=== PATIENT | male | born 1970 | race Caucasian/White ===

== ENCOUNTER 2017-04-15 22:34 | Emergency (ER) | payer SELFPAY ==
[~2017-04-15] VITALS: Ht 170.2 cm; Wt 79.4 kg
[~2017-04-15 22:34] MED LIST: CLINDAMYCIN HC300 MG PO; COLACE100 MG PO; FLO4 PO; LAC PO; NOR10T PO
[2017-04-16 00:56] VITALS: BP 125/86
== END 2017-04-16 01:11 | disposition home or self-care (01) ==
LOC: ED 22:34
DX: H72.92 Unspecified perforation of tympanic membrane, left ear (principal); Z87.442 Personal history of urinary calculi

== ENCOUNTER 2018-08-28 14:18 | Emergency (ER) | payer SELFPAY ==
[~2018-08-28] VITALS: Ht 170.2 cm; Wt 78.9 kg
[2018-08-28 14:23] VITALS: Ht 170.2 cm; Wt 78.9 kg
[2018-08-28 18:12] VITALS: BP 152/78
== END 2018-08-28 17:50 | disposition home or self-care (01) ==
LOC: ED 14:18
DX: S61.412A Laceration without foreign body of left hand, initial encounter (principal); S61.452A Open bite of left hand, initial encounter; J44.9 Chronic obstructive pulmonary disease, unspecified; Z87.442 Personal history of urinary calculi; W54.0XXA Bitten by dog, initial encounter; Y93.89 Activity, other specified; Y92.89 Other specified places as the place of occurrence of the external cause; Y99.8 Other external cause status
CPT/HCPCS: J2270; J2543; Q0162

== ENCOUNTER 2018-08-30 20:06 | Emergency (ER) | payer SELFPAY ==
[~2018-08-30] VITALS: Ht 170.2 cm; Wt 81.6 kg
[2018-08-30 20:17] VITALS: Ht 170.2 cm; Wt 81.6 kg
[2018-08-30 22:25] VITALS: BP 142/74
== END 2018-08-30 22:25 | disposition home or self-care (01) ==
LOC: ED 20:06
DX: S61.452D Open bite of left hand, subsequent encounter (principal); J44.9 Chronic obstructive pulmonary disease, unspecified; Z87.442 Personal history of urinary calculi; W54.0XXD Bitten by dog, subsequent encounter
CPT/HCPCS: J2543

== ENCOUNTER 2018-09-01 17:06 | Inpatient (IN) | payer MEDICAID ==
[~2018-09-01] VITALS: Ht 170.2 cm; Wt 81.6 kg
[2018-09-01 17:37] VITALS: Ht 170.2 cm; Wt 81.6 kg
[2018-09-01 20:29] LABS: CALCIUM 8.8 mg/dL (8.5-10.1); CHLORIDE SERUM 103 mmol/L (98-107); CREATININE SERUM 1.1 mg/dL (0.7-1.3); GFR1 > 60 mL/min; GLUCOSE SERUM 94 mg/dL (74-106); POTASSIUM SERUM 3.9 mmol/L (3.5-5.1); SODIUM SERUM 138 mmol/L (136-145)
[2018-09-01 20:33] LABS: ALBUMIN 3.1 g/dL (3.4-5.0); ALKALINE PHOSPHATASE 88 U/L (46-116); ALT/SGPT 18 U/L (16-63); AST/SGOT 22 U/L (15-37); BASOPHIL % 0.6 % (0-2); BILIRUBIN TOTAL 0.29 mg/dL (0.20-1.00); PLATELET COUNT 344 x10^3mcL (130-400); RED CELL DISTRIBUTION WIDTH 14.4 % (11.5-14.5); TOTAL PROTEIN, SERUM 7.4 g/dL (6.4-8.2)
[2018-09-01] MEDS ORDERED: NORCO 10-325 T1 EACH PO (21:10)
[2018-09-01] MEDS ORDERED: IBUPROFEN400 MG (21:11)
[2018-09-01] MEDS ORDERED: AMO125L8 (21:11)
[2018-09-02 01:29] LABS: CHOLESTEROL/HDL RATIO 2.6; MAGNESIUM 2.1 mg/dL (1.8-2.4)
[2018-09-02 01:40] VITALS: BP 134/95
[2018-09-02 05:48] VITALS: BP 125/80
[2018-09-02 06:44] LABS: BASOPHIL % 0.8 % (0-2); PLATELET COUNT 297 x10^3mcL (130-400); RED CELL DISTRIBUTION WIDTH 14.2 % (11.5-14.5)
[2018-09-02 07:09] LABS: CALCIUM 7.9 mg/dL (8.5-10.1); CARBON DIOXIDE 25.7 mmol/L (21-32); CHLORIDE SERUM 108 mmol/L (98-107); CREATININE SERUM 0.9 mg/dL (0.7-1.3); GFR1 > 60 mL/min; GLUCOSE SERUM 96 mg/dL (74-106); MAGNESIUM 1.9 mg/dL (1.8-2.4); PHOSPHOROUS 2.1 mg/dL (2.5-4.9); POTASSIUM SERUM 3.9 mmol/L (3.5-5.1); SODIUM SERUM 142 mmol/L (136-145)
[2018-09-02 08:21] LABS: UA SPECIFIC GRAVITY 1.015 (1.005-1.035); microscopic required? YES; urine erythrocyte 3+ (NEGATIVE)
[2018-09-02 08:50] VITALS: BP 119/75
[2018-09-02 13:39] VITALS: BP 140/88
[2018-09-02 18:01] VITALS: BP 123/76
[2018-09-02 21:45] VITALS: BP 136/91
[2018-09-03 06:00] VITALS: BP 136/92
[2018-09-03 07:10] LABS: BASOPHIL % 0.4 % (0-2); PLATELET COUNT 323 x10^3mcL (130-400); RED CELL DISTRIBUTION WIDTH 14.1 % (11.5-14.5)
[2018-09-03 07:20] LABS: CALCIUM 8.7 mg/dL (8.5-10.1); CARBON DIOXIDE 20.8 mmol/L (21-32); CHLORIDE SERUM 104 mmol/L (98-107); CREATININE SERUM 0.8 mg/dL (0.7-1.3); GFR1 > 60 mL/min; GLUCOSE SERUM 87 mg/dL (74-106); MAGNESIUM 2.2 mg/dL (1.8-2.4); PHOSPHOROUS 2.8 mg/dL (2.5-4.9); POTASSIUM SERUM 4.7 mmol/L (3.5-5.1); SODIUM SERUM 135 mmol/L (136-145)
[2018-09-03 09:36] VITALS: BP 131/85
[2018-09-03 17:04] VITALS: BP 113/76
[2018-09-03 20:47] VITALS: BP 139/85
[2018-09-04 06:13] VITALS: BP 135/74
[2018-09-04 06:34] LABS: CALCIUM 8.4 mg/dL (8.5-10.1); CARBON DIOXIDE 25.9 mmol/L (21-32); CHLORIDE SERUM 104 mmol/L (98-107); CREATININE SERUM 1.1 mg/dL (0.7-1.3); GFR1 > 60 mL/min; GLUCOSE SERUM 94 mg/dL (74-106); POTASSIUM SERUM 3.9 mmol/L (3.5-5.1); SODIUM SERUM 137 mmol/L (136-145)
[2018-09-04 07:14] LABS: BASOPHIL % 0.4 % (0-2); PLATELET COUNT 330 x10^3mcL (130-400); RED CELL DISTRIBUTION WIDTH 13.9 % (11.5-14.5)
[2018-09-04 09:23] VITALS: BP 134/78
[2018-09-04] MEDS ORDERED: DOXYCYCLINE HY100 M2 PO ×2 (12:20→12:32)
[2018-09-04] MEDS ORDERED: NORCO1 TA1 PO (12:22)
[2018-09-04 13:27] VITALS: BP 134/78
== END 2018-09-04 14:10 | disposition home or self-care (01) | DRG 383 ==
LOC: ED 17:06 → MU 09-02 00:09
PROVIDERS: General Practice; Specialist
DX: L03.114 Cellulitis of left upper limb (principal); N17.0 Acute kidney failure with tubular necrosis; E44.1 Mild protein-calorie malnutrition; E87.1 Hypo-osmolality and hyponatremia; R73.03 Prediabetes; E83.39 Other disorders of phosphorus metabolism; Z87.442 Personal history of urinary calculi; Z68.28 Body mass index [BMI] 28.0-28.9, adult; Z87.11 Personal history of peptic ulcer disease; F17.210 Nicotine dependence, cigarettes, uncomplicated
CPT/HCPCS: J0295; J0696; J3370; J7030; J7050

== ENCOUNTER 2018-09-05 10:01 | Inpatient (IN) | payer MEDICAID ==
[~2018-09-05] VITALS: Ht 170.2 cm; Wt 79.5 kg
[~2018-09-05 10:01] MED LIST changes: +AMO125L8; +DOXYCYCLINE HY100 M2 PO; +IBUPROFEN400 MG; +NORCO 10-325 T1 EACH PO; +NORCO1 TA1 PO
[2018-09-05 10:08] VITALS: Ht 170.2 cm; Wt 79.5 kg
[2018-09-05 11:27] LABS: PLATELET COUNT 355 x10^3mcL (130-400)
[2018-09-05 11:43] LABS: ALKALINE PHOSPHATASE 84 U/L (46-116); ALT/SGPT 19 U/L (16-63); AST/SGOT 20 U/L (15-37); BILIRUBIN TOTAL 0.4 mg/dL (0.20-1.00); CALCIUM 8.7 mg/dL (8.5-10.1); CARBON DIOXIDE 28.2 mmol/L (21-32); CHLORIDE SERUM 102 mmol/L (98-107); CREATININE SERUM 1.1 mg/dL (0.7-1.3); GFR1 > 60 mL/min; GLUCOSE SERUM 109 mg/dL (74-106); LIPASE 100 IU/L (73-393); POTASSIUM SERUM 4.3 mmol/L (3.5-5.1); SODIUM SERUM 138 mmol/L (136-145); TOTAL PROTEIN, SERUM 7.5 g/dL (6.4-8.2)
[2018-09-05 11:47] LABS: ALBUMIN 2.9 g/dL (3.4-5.0)
[2018-09-05 12:13] LABS: BAND NEUTROPHIL 8 % (0-10); BASOPHIL 0 % (0-2)
[2018-09-05 12:14] LABS: MONOCYTE 4 % (0-7); SEGMENTED NEUTROPHILS 80 % (37-75); burr cell (echinocyte) 1+; rbc morphology (normal/abnorm) ABNORMAL (NORMAL)
[2018-09-05 13:02] LABS: UA SPECIFIC GRAVITY 1.025 (1.005-1.035); microscopic required? YES; urine erythrocyte 3+ (NEGATIVE)
[2018-09-05 13:09] LABS: AMPHETAMINE QUAL UR POSITIVE (See below)
[2018-09-05 16:12] LABS: CHOLESTEROL/HDL RATIO 3.5; MAGNESIUM 1.9 mg/dL (1.8-2.4)
[2018-09-05 16:19] LABS: FREE T4 0.81 ng/dL (0.76-1.46); FREE THYROXINE INDEX 2.2 ug/dL (1.4-4.5); T4(THYROXINE) 6.7 ug/dL (4.7-13.3)
[2018-09-05 16:36] VITALS: BP 131/88
[2018-09-05 17:49] LABS: T3 TOTAL 0.78 ng/mL
[2018-09-05 20:00] VITALS: BP 129/82
[2018-09-06 05:57] VITALS: BP 116/69
[2018-09-06 06:20] LABS: BASOPHIL % 0.2 % (0-2); PLATELET COUNT 315 x10^3mcL (130-400)
[2018-09-06 06:37] LABS: CALCIUM 7.7 mg/dL (8.5-10.1); CARBON DIOXIDE 23.7 mmol/L (21-32); CHLORIDE SERUM 106 mmol/L (98-107); CREATININE SERUM 1.1 mg/dL (0.7-1.3); GFR1 > 60 mL/min; GLUCOSE SERUM 91 mg/dL (74-106); MAGNESIUM 1.6 mg/dL (1.8-2.4); PHOSPHOROUS 2.6 mg/dL (2.5-4.9); POTASSIUM SERUM 3.8 mmol/L (3.5-5.1); SODIUM SERUM 139 mmol/L (136-145)
[2018-09-06 09:45] VITALS: BP 137/73
[2018-09-06 11:11] VITALS: BP 118/84
[2018-09-06 17:28] VITALS: BP 120/77
[2018-09-06 19:50] VITALS: BP 133/82
[2018-09-07 05:43] VITALS: BP 111/70
[2018-09-07 07:40] LABS: BASOPHIL % 0.2 % (0-2); PLATELET COUNT 312 x10^3mcL (130-400); RED CELL DISTRIBUTION WIDTH 14.2 % (11.5-14.5)
[2018-09-07 07:48] LABS: CALCIUM 7.9 mg/dL (8.5-10.1); CARBON DIOXIDE 25.8 mmol/L (21-32); CHLORIDE SERUM 106 mmol/L (98-107); GFR1 > 60 mL/min; GLUCOSE SERUM 102 mg/dL (74-106); MAGNESIUM 1.9 mg/dL (1.8-2.4); PHOSPHOROUS 2.6 mg/dL (2.5-4.9); POTASSIUM SERUM 3.9 mmol/L (3.5-5.1); SODIUM SERUM 137 mmol/L (136-145)
[2018-09-07] MEDS ORDERED: PROTONIX40 MG PO (09:57)
[2018-09-07] MEDS ORDERED: LEVAQUIN500 M1 PO (09:58)
[2018-09-07] MEDS ORDERED: FLA500 PO (09:58)
[2018-09-07] MEDS ORDERED: IBU600 M2 PO (10:01)
[2018-09-07 10:20] VITALS: BP 146/92
[2018-09-07 12:26] VITALS: BP 111/70
== END 2018-09-07 13:22 | disposition home or self-care (01) | DRG 241 ==
LOC: ED 10:01 → MU 14:53
PROVIDERS: Emergency Medicine; General Practice; Internal Medicine Gastroenterology
PROC: 0DB98ZX Excision of Duodenum, Via Natural or Artificial Opening Endoscopic, Diagnostic (ICD-10-PCS; principal; 2018-09-06 10:00)
PROC: 0DB78ZX Excision of Stomach, Pylorus, Via Natural or Artificial Opening Endoscopic, Diagnostic (ICD-10-PCS; 2018-09-06 10:00)
DX: K25.9 Gastric ulcer, unspecified as acute or chronic, without hemorrhage or perforation (principal); N17.0 Acute kidney failure with tubular necrosis; E44.0 Moderate protein-calorie malnutrition; E72.20 Disorder of urea cycle metabolism, unspecified; K29.80 Duodenitis without bleeding; E86.0 Dehydration; F15.10 Other stimulant abuse, uncomplicated; J44.9 Chronic obstructive pulmonary disease, unspecified; N20.0 Calculus of kidney; R31.9 Hematuria, unspecified; Z87.442 Personal history of urinary calculi; Z68.27 Body mass index [BMI] 27.0-27.9, adult; Z87.891 Personal history of nicotine dependence; S61.452D Open bite of left hand, subsequent encounter; W54.0XXD Bitten by dog, subsequent encounter
CPT/HCPCS: 43235; 82962; 83880; 84439; C9113; G0480; J0295; J1200; J1610; J1885; J1956; J2250; J2310; J2405; J3010; J3490; J7030; Q0092

== ENCOUNTER 2019-05-18 09:38 | Inpatient (IN) | payer SELFPAY ==
[~2019-05-18] VITALS: Ht 170.2 cm; Wt 81.2 kg
[~2019-05-18 09:38] MED LIST changes: +FLA500 PO; +IBU600 M2 PO; +LEVAQUIN500 M1 PO; +PROTONIX40 MG PO
--- NOTE | 2019-05-18 09:49 | NUR ---
EKG IN PROCESS
--- NOTE | 2019-05-18 10:09 | NUR ---
PT C/O CHEST TIGHTNESS RADIATING TO LEFT SHOULDER WITH SOB AND LEFT SHOULDER NUMBNESS SINCE THURSDAY AM, PT ALSO C/O GENERAL BODY ACHES SINCE THURSDAY AM. PT DENIES ANY COUGH AND/OR HX ANXIETY. PT STS +DIZZY WITH -LOC. PT DENIES ANY EPISODES OF N/V. PT DENIES ANY RECENT TRAUMA AND/OR INJURY, PT AAOX4, RESPS E/U, LUNGS CTA, SKIN PINK DRY AND WARM, NO S/S RESP DISTRESS NOTED AT THIS TIME , PT SPEAKING FULL CLEAR SENTENCES, IN NAD AT THIS TIME, PT GOWNED AND PLACED ON FULL CM , SINUS TACHYCARDIA, AWAITING MSE
--- NOTE | 2019-05-18 10:10 | NUR ---
PT ALSO C/O DIARRHEA X2 DAYS
[2019-05-18 10:55] LABS: CALCIUM 9.1 mg/dL (8.5-10.1); CARBON DIOXIDE 23.6 mmol/L (21-32); CREATININE SERUM 1.5 mg/dL (0.7-1.3); POTASSIUM SERUM 4.3 mmol/L (3.5-5.1)
[2019-05-18 11:00] LABS: BILIRUBIN TOTAL 0.6 mg/dL (0.20-1.00)
[2019-05-18 11:02] LABS: ALBUMIN 3.3 g/dL (3.4-5.0); BASOPHIL % 0.3 % (0-2); PLATELET COUNT 260 x10^3mcL (130-400); TOTAL PROTEIN, SERUM 8.3 g/dL (6.4-8.2)
--- NOTE | 2019-05-18 11:16 | NUR ---
PT TAKEN TO CT VIA [facility]
[2019-05-18 11:22] LABS: RED CELL DISTRIBUTION WIDTH 14.9 % (11.5-14.5)
--- NOTE | 2019-05-18 11:29 | NUR ---
PT BACK FROM CT IN STABLE CONDITION
--- NOTE | 2019-05-18 11:53 | NUR ---
PT ASLEEP BUT AROUSABLE IN POSITION OF COMFORT, RESPS E/U, LIGHTS DIMMED PER PT REQUEST AND COMFORT, CALL LIGHT WITHIN REACH, WILL CONTINUE TO MONITOR
[2019-05-18 12:35] LABS: microscopic required? YES; urine erythrocyte 2+ (NEGATIVE)
--- NOTE | 2019-05-18 12:59 | NUR ---
PT IN POSITION OF COMFORT, PT DENIES NEED FOR PAIN MEDICATION AT THIS TIME, RESPS E/U, VSS, CALL LIGHT WITHIN REACH, WILL CONTINUE TO MONITOR
--- NOTE | 2019-05-18 13:55 | NUR ---
PT REQUESTING ICE CHIPS, PER MD AQUINO OKAY TO GIVE PT ICE CHIPS, ICE CHIPS PROVIDED
--- NOTE | 2019-05-18 14:59 | NUR ---
PT RESTING IN POSITION OF COMFORT, RESPS E/U, VSS
--- NOTE | 2019-05-18 15:30 | NUR ---
REPORT GIVEN TO MYAH BOWMAN, TELE
[2019-05-18 15:47] LABS: T3 TOTAL 0.73 ng/mL
[2019-05-18 15:59] LABS: FREE T4 0.83 ng/dL (0.76-1.46); FREE THYROXINE INDEX 1.7 ug/dL (1.4-4.5); T4(THYROXINE) 5.1 ug/dL (4.7-13.3)
--- NOTE | 2019-05-18 16:00 | NUR ---
PT WAS RECEIVED BY PRIMARY NURSE MYAH FROM ED VIA [facility] AT 1540H. PT CAME IN DUE TO CHEST PAIN, DIARRHEA AND BODY ACHES X2 DAYS. AAXO4. C/O HEADACHE AND DIZZINESS. ABLE TO FOLLOW COMMANDS. C/O SOB ON EXERTION, O2 SAT=97%, RA. DENIES CHEST PAIN/PRESSURE BUT STATED THAT HE HAS CONGESTION ON HIS CHEST. SINUS TACHYCARDIA ON THE MONITOR, HR AT 108. C/O DIARRHEA AND 10/10 ACHING ABDOMINAL PAIN. ABDOMEN IS SOFT. BOWEL SOUNDS ACTIVE. C/O BURNING SENSATION ON URINATION. IV SITE PATENT AND INTACT. SIDE RAILS UPX2. CALL LIGHT ON REACH. PT WAS RECEIVED FROM ED W/ YL ONGOING. PRIMARY NURSE MYAH AT BEDSIDE FOR CONTINUITY OF CARE
[2019-05-18 16:02] VITALS: BP 115/62
[2019-05-18 16:11] VITALS: Ht 170.2 cm; Wt 81.2 kg
[2019-05-18 16:30] LABS: CHOLESTEROL/HDL RATIO 2.2
--- NOTE | 2019-05-18 17:30 | NUR ---
PT FOUND ON CHAIR AT 2 SOUTH. PT WAS AMBULATNG AROUND UNIT, GAIT BALANCED AND STEADY, STOPPED DUE TO DIZZINESS AND FATIGUE, DENIES N/V OR SOB. PT AOX4, RESP E/U ON RA, BROUGHT BACK TO ROOM VIA WHEELCHAIR. ASSISTED TO BED, PT NOW SLEEPING. IV TO LAC W/ NO SIGNS OF INFILTRATION, IVF INFUSING WELL. BED IN LOWEST POSITION AND CALL LIGHT WITHIN REACH. WILL ENDORSE TO ONCOMING NURSE.
[2019-05-18 19:12] VITALS: BP 119/79
--- NOTE | 2019-05-18 19:59 | NUR ---
AWAKE AND ALERT, ORIENTED TO NAME, PLACE, TIME AND SITUATION. WATCHING TV. HOB ELEVATED 30 DEG. BREATHING EVEN AND UNLABORED ON ROOM AIR. STATED HAD LOOSE STOOL 4 TIMES TODAY, STATED NEEDED TO USE RESTROOM AGAIN. AMBULATED TO RESTROOM WITH STEADY GAIT. PASSED LOOSE STOOL. IVF OF NS AT 100ML/HR. STATED HAVING ACHING PAIN TO LEGS. TEMP 100.4F. TYLENOL 650MG ADMINISTERED PO FOR PAIN AND FEVER. IV SITE FREE FROM ERYTHEMA OR SWELLING.
[2019-05-18 21:15] LABS: AMPHETAMINE QUAL UR POSITIVE (See below)
--- NOTE | 2019-05-18 21:18 | NUR ---
COOLING MEASURES IN PLACE.
--- NOTE | 2019-05-18 21:18 | NUR ---
EYES CLOSED, BREATHING UNLABORED. HOB KEPT ELEVATED 30 DEG. IVF INFUSING WELL.
--- NOTE | 2019-05-18 23:36 | NUR ---
EYES CLOSED, BREATHING EVEN AND UNLABORED. HOB ELEVATED 30 DEG. CALL LIGHT WITHIN EASY REACH.
--- NOTE | 2019-05-19 02:05 | NUR ---
EYES CLOSED, BREATHING EVEN AND UNLABORED. IVF INFUSING WELL.
--- NOTE | 2019-05-19 02:07 | NUR ---
NOTED MRSA SCREEN CANCELLED BY LAB. CALLED LAB TALKED TO LIBAN, INFORMED NEED MRSA SCREEN. HE STATED HE WILL PLACE ORDER BACK IN, WILL CHECK IF SPECIMEN STILL AVAILABLE
[2019-05-19 05:32] VITALS: BP 117/86
[2019-05-19 06:44] LABS: BASOPHIL % 0.6 % (0-2); PLATELET COUNT 225 x10^3mcL (130-400)
[2019-05-19 06:57] LABS: CALCIUM 8.4 mg/dL (8.5-10.1); CARBON DIOXIDE 24.2 mmol/L (21-32); CREATININE SERUM 1.4 mg/dL (0.7-1.3); MAGNESIUM 2.2 mg/dL (1.8-2.4); PHOSPHOROUS 3.2 mg/dL (2.5-4.9); POTASSIUM SERUM 4.8 mmol/L (3.5-5.1)
[2019-05-19 07:02] LABS: RED CELL DISTRIBUTION WIDTH 15.3 % (11.5-14.5)
--- NOTE | 2019-05-19 07:12 | NUR ---
EYES CLOSED, BREATHING EVEN AND UNLABORED. IN NO ACUTE DISTRESS. ENDORSED TO NURSE CANELO
--- NOTE | 2019-05-19 07:30 | NUR ---
PT ENDORSE TO ME THIS MORNING, LAYING IN BED RESTING, AA/O X4/ BREATHING EVEN AND UNLABORED ON RA, NO ACUTE RESP DISTRESS OR SOB NOTED. TELE 11 SR NOTED, HR 80. DENIES ANY CP OR PRESSURE.BOWEL SOUNDS ACTIVE IN ALL FOUR QUADS/ DENIES ANY ABD PAIN OR DISCOMFORT. VOIDS FREELY, AMB. IV TO THE LAC INTACT AND PATENT INFUSING AT 100ML/HR, NO REDNESS OR SWELLING NOTED. WILL CONTINUE TO MONITOR.
[2019-05-19 08:40] VITALS: BP 120/87
--- NOTE | 2019-05-19 10:50 | NUR ---
PT C/O BURRIS, MEDICATED PER EMAR.
[2019-05-19 11:40] VITALS: BP 105/71
--- NOTE | 2019-05-19 11:45 | NUR ---
Discount pharmacy card and list to low cost medical clinics given to patient by Carmine Mcclellan.
[2019-05-19 16:52] VITALS: BP 141/78
--- NOTE | 2019-05-19 17:22 | NUR ---
PT C/O ABD PAIN 5/10 ,MEDICATED PER EMAR. WILL CONTINUE TO MONITOR.
--- NOTE | 2019-05-19 19:00 | NUR ---
NO ACUTE CHANGES AT THIS TIME. NO ACUTE RESP DISTRESS OR SOB NOTED/ DENIES ANY ABD PAIN OR DISCOMFORT AT THIS TIME. WILL ENDORSE TO INCOMING RN.
[2019-05-19 19:10] VITALS: BP 113/72
--- NOTE | 2019-05-19 19:43 | NUR ---
EYES CLOSED, EASILY AWAKENED. ORIENTED TO NAME, PLACE, TIME AND SITUATION. SPEECH CLEAR AND APPROPRIATE. BREATHING EVEN AND UNLABORED ON ROOM AIR. IVF OF NS INFUSING WELL. CALL LIGHT WITHIN EASY REACH.
--- NOTE | 2019-05-19 21:52 | NUR ---
LATE ENTRY: 2015H - PT HAS VISITOR IN ROOM WHOM PT IDENTIFIES FRIEND AND NEIGHBOR. PT IN NO ACUTE DISTRESS. CALL LIGHT WITHIN EASY REACH.
--- NOTE | 2019-05-19 23:34 | NUR ---
eyes closed, breathing unlabored. call light within easy reach.
[2019-05-20 04:40] VITALS: BP 120/63
--- NOTE | 2019-05-20 06:18 | NUR ---
EYES CLOSED, LYING ON HIS LEFT SIDE. BREATHING EVEN AND UNLABORED. SINUS RHYTHM ON TELE, HR 69/MIN. CALL LIGHT WITHIN EASY REACH. IVF INFUSING WELL. IV SITE FREE FROM ERYTHEMA OR SWELLING
--- NOTE | 2019-05-20 07:20 | NUR ---
EYES CLOSED, BREATHING UNLABORED. IN NO ACUTE DISTRESS. ENDORSED TO NURSE GALLARDO
[2019-05-20 07:22] LABS: BASOPHIL % 0.4 % (0-2); PLATELET COUNT 242 x10^3mcL (130-400)
[2019-05-20 07:24] LABS: CALCIUM 8.1 mg/dL (8.5-10.1); CARBON DIOXIDE 24.5 mmol/L (21-32); CHLORIDE SERUM 107 mmol/L (98-107); CREATININE SERUM 1.2 mg/dL (0.7-1.3); GFR1 > 60 mL/min; GLUCOSE SERUM 106 mg/dL (74-106); POTASSIUM SERUM 4.4 mmol/L (3.5-5.1); SODIUM SERUM 143 mmol/L (136-145)
[2019-05-20 07:50] LABS: RED CELL DISTRIBUTION WIDTH 15.1 % (11.5-14.5)
--- NOTE | 2019-05-20 08:11 | NUR ---
PATIENT RESTING IN BED, NO ACUTE DISTRESS NOTED. PATIENT DENIES PAIN. TELE MONITOR IN PLACE. NO BM NOTED THIS MORNING. PATIENT DENIES HEADACHE. DENIES NAUSEA & VOMITTING. NS IV INFUSING TO LAC AT 100ML/HR, IV SITE CDI & PATENT, NO S/S OF INFILTRATION. CALL LIGHT WITHIN REACH, BED IN LOW POSITION, WILL CONTINUE TO MONITOR FOR CHANGES.
[2019-05-20 08:46] VITALS: BP 135/85
[2019-05-20 12:19] VITALS: BP 115/80
--- NOTE | 2019-05-20 13:00 | NUR ---
PATIENT IS ASLEEP AT THIS TIME. NO ACUTE DISTRESS NOTED, ON ROOM AIR. CALL LIGHT WITHIN REACH, BED IN LOW POSITION. WILL CONTINUE TO MONITOR PATIENT.
[2019-05-20 16:50] VITALS: BP 107/73
--- NOTE | 2019-05-20 18:28 | NUR ---
PATIENT RESTING IN BED, NO ACUTE CHANGES NOTED THROUGH OUT SHIFT. PATIENT DENIES PAIN. DENIES N/V. IV TO LAC SALINE LOCK, NO S/S OF INFILTRATION. CALL LIGHT WITHIN REACH, BED IN LOW POSITION. WILL ENDORSE TO NIGHT RN.
--- NOTE | 2019-05-20 19:05 | NUR ---
REPORT RECEIVED FROM DAY SHIFT RN. PATIENT WAS SEEN AND IS RESTING COMFORTABLY IN BED. NO DISTRESS NOTED. BREATHING EVEN AND UNLABORED ON ROOM AIR. NO SOB OR RESP DISTRESS NOTED. NO C/O PAIN. DENIES CHEST PAIN. IV TO THE LAC, SALINE LOCK. PATENT AND INTACT. NO REDNESS OR SWELLING NOTED. REPORTS HE IS STILL HAVING LOOSE STOOLS AND STATES IT'S SLIGHTLY IMPROVING. COMFORT AND SAFETY MEASURES IN PLACE. BED IS LOCKED AND LOWEST POSITION. SIDE RAILS UP X2. CALL LIGHT IS WITHIN REACH. WILL CONTINUE TO MONITOR.
[2019-05-20 20:27] VITALS: BP 130/82
--- NOTE | 2019-05-20 21:25 | NUR ---
C/O 05/31 HEADACHE. PRN TYLENOL WAS ADMINSITERED PRESRCIBED. EDUCATED PATIENT ON SCHEDULED ELAVIL. VERBALIZED UNDERSTANDING. NO DISTRESS NOTED. WILL CONTINUE TO MONITOR AND REASSESS PAIN LEVEL.
--- NOTE | 2019-05-21 01:48 | NUR ---
RESTING COMFORTABLY IN BED WITH EYES CLOSED. NO DISTRESS NOTED. BREATHING EVEN AND UNLABORED ON ROOM AIR. NO S/S OF PAIN NOTED. NO SOB NOTED. SAFETY MEASURES IN PLACE. SAFETY MEASURES IN PLACE. CALL LIGHT IS WITHIN REACH. WILL CONTINUE TO MONITOR.
[2019-05-21 05:47] VITALS: BP 121/91
--- NOTE | 2019-05-21 06:22 | NUR ---
RESTED IN LONG INTERVALS THROUGHOUT THE NIGHT. NO ACUTE CHANGES NOTED. BREATHING EVEN AND UNLABORED ON ROOM AIR. NO DISTRESS NOTED. NO C/O PAIN THROUGHOUT THE NIGHT. REPORTED 1 LOOSE BM. IV TO THE LAC, SALINE LOCK. PATENT AND INTACT. NO REDNESS OR SWELLING NOTED. SAFETY MEASURES IN PLACE. CALL LIGHT IS WITHIN REACH. WILL ENDORSE CARE TO DAY SHIFT RN.
[2019-05-21 06:37] LABS: BASOPHIL % 0.4 % (0-2); PLATELET COUNT 294 x10^3mcL (130-400)
[2019-05-21 07:01] LABS: CALCIUM 8.1 mg/dL (8.5-10.1); CHLORIDE SERUM 107 mmol/L (98-107); GFR1 > 60 mL/min; GLUCOSE SERUM 99 mg/dL (74-106); POTASSIUM SERUM 4.1 mmol/L (3.5-5.1); SODIUM SERUM 142 mmol/L (136-145)
--- NOTE | 2019-05-21 07:22 | NUR ---
RECEIVED REPORT FROM YULY RN, PT IN NO ACUTE DISTRESS
--- NOTE | 2019-05-21 07:38 | NUR ---
PT IN BED, NO ACUTE DISTRESS, VERBAL, ABLE TO MAKE NEEDS KNOWN, CALM AND COPPERATIVE, PERLLA, NO REDNESS/DRAINAGE, RESP EVEN, NO COUGH/SOB, DENIED CP/PRESSURE/BURRIS, DENIED N/V/D, CHEST RISE SYMMETRICALLY, ABD SOFT AND MILD-TENDER TO TOUCH, REPORTED LOOSE STOOL X 1 THIS AM, HEPLOCKED, DRESSING CDI, PALP PULSES, CAP REFILL < 3S, AMBULATORY, CONTINENT, SKIN C/D/W, ALL NEEDS ADDRESSED AT THIS TIME, SAFETY PROTOCOL FOLLOWED, CONTINUE TO MONITOR
[2019-05-21 07:55] VITALS: BP 121/91
[2019-05-21 08:13] VITALS: BP 141/92
--- NOTE | 2019-05-21 09:41 | NUR ---
PT IN BED, IN NO ACUTE DISTRESS, DC PAPER SIGNED AND KEPT IN CHART, PT STATED IT'S HIS RESPONSIBILITY TO F/U W/ PCP WITHIN 3-4 DAYS AFTER DC, , EDUCATION R/T CONDITION AND MEDS GIVEN, VERBALLY UNDERSTANDING, NO FURTHER CONCERNS NEEDED WHEN ASKED, IV REMOVED, IV CATH TIP INTACT, NO ACTIVE BLEEDING NOTED, PT ASSISTED TO LOBBY BY NURSING STAFFS, PT WENT HOME W/ FAMILY MEMBER
== END 2019-05-21 11:03 | disposition home or self-care (01) | DRG 392 ==
LOC: ED 09:38 → DU 14:41 → MU 05-20 14:45
PROVIDERS: Emergency Medicine; Internal Medicine; Internal Medicine Gastroenterology; ADMIT Internal Medicine
DX: K52.89 Other specified noninfective gastroenteritis and colitis (principal); R65.10 Systemic inflammatory response syndrome (SIRS) of non-infectious origin without acute organ dysfunction; J44.9 Chronic obstructive pulmonary disease, unspecified; Z87.442 Personal history of urinary calculi; Z87.891 Personal history of nicotine dependence; Z83.3 Family history of diabetes mellitus; Z82.49 Family history of ischemic heart disease and other diseases of the circulatory system; Z83.49 Family history of other endocrine, nutritional and metabolic diseases
CPT/HCPCS: 84439; C9113; G0378; J0696; J2270; J3490; J7030; Q0092; Q9967